=== PATIENT | female | born 1935 | race Caucasian/White ===

== ENCOUNTER → 2019-02-18 08:28 | Outpatient (CLI) | payer MEDICARE, BC, SELFPAY ==
[2019-02-18 11:41] LABS: Glucose 154 mg/dL (80-110)
== END ==
PROVIDERS: Visit Provider Nurse Practitioner
DX: E11.9 Type 2 diabetes mellitus without complications (principal)
CPT/HCPCS: 36415; 82947; 83036

== ENCOUNTER → 2019-05-20 10:51 | Outpatient (CLI) | payer MEDICARE, BC, SELFPAY ==
--- NOTE | 2019-05-20 10:53 | DI.MG.S_ITS ---
BILATERAL DIGITAL SCREENING MAMMOGRAM 3D/2D WITH CAD: 05/20/2019 CLINICAL: Routine screening. Personal history of left breast cancer. Family history of breast cancer. Comparison is made to exams dated: 05/01/2018 mammogram, 02/13/2017 mammogram, and 01/01/2016 mammogram - [facility]. The tissue of both breasts is heterogeneously dense. This may lower the sensitivity of mammography. Current study was also evaluated with a Computer Aided Detection (CAD) system. There are benign vascular calcifications in both breasts. No significant masses, calcifications, or other findings are seen in either breast. There has been no significant interval change. IMPRESSION: There is no mammographic evidence of malignancy. A 1 year screening mammogram is recommended. This exam was interpreted at Station ID: [id number]. NOTE: For mammograms, a report in lay terms will be sent to the patient. Approximately 15% of breast malignancies will not be visualized mammographically. In the management of a palpable breast mass, a negative mammogram must not discourage biopsy of a clinically suspicious lesion. Electronically Signed By: Harinder sylvester/malcolm:05/20/2019 12:17:26 copy to: WILLI[facility] NESBITT letter sent: Normal Exam ACR BI-RADS Category 2: Benign Finding(s) 3342F
== END ==
PROVIDERS: PCP Nurse Practitioner; Referring Provider Internal Medicine Hematology & Oncology; Visit Provider Internal Medicine Hematology & Oncology
DX: Z12.31 Encounter for screening mammogram for malignant neoplasm of breast (principal); Z85.3 Personal history of malignant neoplasm of breast; Z80.3 Family history of malignant neoplasm of breast
CPT/HCPCS: 77063; 77067

== ENCOUNTER → 2019-08-27 10:05 | Outpatient (CLI) | payer MEDICARE, BC, SELFPAY ==
[2019-08-27 11:04] LABS: Hemoglobin A1C% w Est Avg Glu 8.3 % (4.0-6.0)
[2019-08-27 11:10] LABS: Alanine Aminotransferase 15 IU/L (<35); Albumin 3.8 g/dL (3.5-5.0); Albumin Globulin Ratio 1.2 (1.0-2.8); Alkaline Phosphatase 100 U/L (38-126); Aspartate Aminotransferase 33 IU/L (14-36); BUN Creatinine Ratio 15.5 (6-22); Bilirubin Total 0.6 mg/dL (0.2-1.3); Blood Urea Nitrogen 11 mg/dL (7-17); Calcium 9.4 mg/dL (8.4-10.2); Carbon Dioxide 31 mmol/L (22-32); Chloride 101 mmol/L (98-107); Cholesterol 97 mg/dL (140-199); Estimated Glomerular Filt Rate > 60.0 mL/min (>60); Globulin 3.2 g/dL (1.7-4.1); Glucose 165 mg/dL (80-110); HDL Cholesterol 44 mg/dL (40-60); HEMOLYSIS < 15 (0-50); LDL Cholesterol Calculated 40 mg/dL (<100); Sodium 139 mmol/L (137-145); Triglycerides 65 mg/dL (35-150)
[2019-08-27 13:54] LABS: Thyroid Stimulating Hormone 0.63 uIU/mL (0.47-4.68)
== END ==
PROVIDERS: PCP Nurse Practitioner; Referring Provider Nurse Practitioner; Visit Provider Nurse Practitioner
DX: E03.9 Hypothyroidism, unspecified (principal); E11.65 Type 2 diabetes mellitus with hyperglycemia; E78.5 Hyperlipidemia, unspecified; I48.11 Longstanding persistent atrial fibrillation; Z79.899 Other long term (current) drug therapy
CPT/HCPCS: 36415; 80053; 80061; 83036; 84443

== ENCOUNTER → 2019-12-25 08:01 | Outpatient (CLI) | payer MEDICARE, BC, SELFPAY ==
[2019-12-25 08:31] LABS: Add Manual Diff / Slide Review NO; Basophils Absolute Auto 0 /uL (0-100); Basophils Percent Auto 0.6 % (0-2); Eosinophils Absolute Auto 300 /uL (0-450); Eosinophils Percent Auto 3.9 % (2-4); Hematocrit 37.5 % (36-46); Hemoglobin 11.8 g/dL (12.0-16.0); Lymphocytes Absolute Auto 2400 /uL (1100-4500); Lymphocytes Percent Auto 34.6 % (25-40); Mean Corpuscular HGB Conc 31.5 % (30-36); Mean Corpuscular Hemoglobin 23.2 PG (26-34); Mean Corpuscular Volume 73.9 fL (80-100); Monocytes Absolute Auto 800 /uL (0-900); Neutrophils Absolute Auto 3400 /uL (1500-7000); Neutrophils Percent Auto 48.9 % (50-75); Platelet Count 194 X10^3/uL (150-400); Red Blood Cell Count 5.07 X10^6/uL (4.0-5.2); Red Cell Distribution Width 17.7 % (11.6-14.8)
[2019-12-25 08:41] LABS: Alanine Aminotransferase 19 IU/L (<35); Albumin 3.7 g/dL (3.5-5.0); Albumin Globulin Ratio 1.2 (1.0-2.8); Alkaline Phosphatase 100 U/L (38-126); Aspartate Aminotransferase 33 IU/L (14-36); BUN Creatinine Ratio 13.2 (6-22); Bilirubin Total 0.5 mg/dL (0.2-1.3); Blood Urea Nitrogen 10 mg/dL (7-17); Carbon Dioxide 34 mmol/L (22-32); Chloride 101 mmol/L (98-107); Estimated Glomerular Filt Rate > 60.0 mL/min (>60); Globulin 3.1 g/dL (1.7-4.1); Glucose 139 mg/dL (80-110); HEMOLYSIS < 15 (0-50); Potassium 3.4 mmol/L (3.4-5.1); Sodium 138 mmol/L (137-145); Total Protein 6.8 g/dL (6.3-8.2)
[2019-12-25 08:42] LABS: Hemoglobin A1C% w Est Avg Glu 8.3 % (4.0-6.0)
[2019-12-25 09:49] LABS: Thyroid Stimulating Hormone 1.94 uIU/mL (0.47-4.68)
[2019-12-25 09:59] LABS: Alanine Aminotransferase 18 IU/L (<35); Albumin 3.5 g/dL (3.5-5.0); Albumin Globulin Ratio 1.2 (1.0-2.8); Alkaline Phosphatase 100 U/L (38-126); Aspartate Aminotransferase 37 IU/L (14-36); BUN Creatinine Ratio 13.9 (6-22); Bilirubin Total 0.5 mg/dL (0.2-1.3); Blood Urea Nitrogen 10 mg/dL (7-17); Calcium 9.1 mg/dL (8.4-10.2); Carbon Dioxide 33 mmol/L (22-32); Chloride 101 mmol/L (98-107); Estimated Glomerular Filt Rate > 60.0 mL/min (>60); Globulin 2.9 g/dL (1.7-4.1); Glucose 137 mg/dL (80-110); HEMOLYSIS < 15 (0-50); Potassium 3.5 mmol/L (3.4-5.1); Sodium 138 mmol/L (137-145); Total Protein 6.4 g/dL (6.3-8.2)
== END ==
PROVIDERS: Internal Medicine Hematology & Oncology; PCP Nurse Practitioner; Referring Provider Nurse Practitioner; Visit Provider Nurse Practitioner
DX: C50.912 Malignant neoplasm of unspecified site of left female breast (principal); E03.9 Hypothyroidism, unspecified; E11.65 Type 2 diabetes mellitus with hyperglycemia; E78.5 Hyperlipidemia, unspecified; I48.11 Longstanding persistent atrial fibrillation; Z79.899 Other long term (current) drug therapy
CPT/HCPCS: 36415; 80053; 83036; 84443; 85025

== ENCOUNTER → 2019-12-30 11:56 | Outpatient (CLI) | payer MEDICARE, BC, SELFPAY ==
--- NOTE | 2019-12-30 11:59 | DI.CT.S_ITS ---
PROCEDURE: CT CHEST WO CON INDICATIONS: cough, breast cancer TECHNIQUE: Noncontrast 5 mm thick sections acquired from the pulmonary apices to the posterior costophrenic angles. 1 mm lung window, 5 mm thick coronal and sagittal and 7 mm axial MIP reformats were then acquired. For radiation dose reduction, the following was used: automated exposure control, adjustment of mA and/or kV according to patient size. COMPARISON: None. FINDINGS: Image quality: Excellent. Lungs and pleura: No acute air space opacities. There is mild subpleural septal thickening. No pleural effusions or pneumothorax. A 4 mm calcified granuloma is seen in the left lower lobe. Central and peripheral airways are patent and normal in caliber. Mediastinum: Heart size is normal. No pericardial effusion. Severe coronary artery atherosclerosis. No mediastinal adenopathy by size criteria. Thoracic aorta and central pulmonary arteries are normal in size. Esophagus is normal in caliber. No hiatal hernia. Bones and chest wall: No suspicious bony lesions. No vertebral body compression fractures. No axillary or supraclavicular adenopathy by size criteria. Thyroid gland is normal. Abdomen: Liver is partially visualized. The intrahepatic portal vein vein is prominent measuring 1.5 cm in diameter with hypodense halo. IMPRESSION: 1. No suspicious lung nodules to suggest pulmonary metastasis. 2. Mild subpleural septal thickening. 3. A calcified granuloma in the left lower lobe. 4. Liver is partially visualized. The intrahepatic portal vein vein is prominent measuring 1.5 cm in diameter with hypodense halo. Cannot rule out portal vein thrombosis. Recommend abdominal CT with contrast or Doppler ultrasound of the liver for further evaluation. Dictated by: Pema Chavez M.D. on 12/30/2019 at 13:00 Approved by: Pema Chavez M.D. on 12/30/2019 at 18:23
== END ==
PROVIDERS: PCP Nurse Practitioner; Referring Provider Nurse Practitioner; Visit Provider Internal Medicine Hematology & Oncology
DX: C50.912 Malignant neoplasm of unspecified site of left female breast (principal); R05 Cough
CPT/HCPCS: 71250

== ENCOUNTER → 2020-01-29 07:37 | Outpatient (CLI) | payer MEDICARE, BC, SELFPAY ==
--- NOTE | 2020-01-29 07:39 | DI.US.S_ITS ---
PROCEDURE: US ABDOMEN COMPLETE INDICATIONS: HEPATOMEGALY; POSSIBLE PORTAL VEIN THROMBOSIS TECHNIQUE: Real-time scanning was performed of the abdominal and retroperitoneal organs, with image documentation. COMPARISON: [facility], CT, CT CHEST WO CON, 12/30/2019, 12:20. FINDINGS: Liver: Liver is normal in size and homogeneous in echotexture. Gallbladder: Surgically absent Biliary ducts: Intrahepatic bile ducts are non-dilated. Extrahepatic bile duct caliber measures 11.1 mm. Normal is 6-7 mm or less in diameter, or 10 mm or less post-cholecystectomy. Pancreas: Visualized portions of the pancreas are sonographically normal. Spleen: Spleen is normal in size and homogeneous in echotexture. Kidneys: Kidneys are normal in size and echotexture. Right kidney measures 10.0 cm long; left kidney measures 10.0 cm long. No hydronephrosis or nephrolithiasis. No solid masses. Aorta: Visualized aorta is normal in caliber at less than 3 cm. Iliacs: Proximal common iliac arteries are normal in caliber at less than 2.5 cm. IVC: Intrahepatic inferior vena cava is patent. Miscellaneous: No free abdominal fluid. IMPRESSION: The common bile duct caliber is just above the upper limits of normal at 11 mm in a patient with prior cholecystectomy. The main portal vein measures 9 mm and is patent with appropriate direction of flow. The prior chest CT scan 12/30/19 was performed without contrast and the current ultrasound documents no evidence of portal vein thrombosis. Dictated by: Young Silveira M.D. on 01/29/2020 at 11:48 Approved by: Young Silveira M.D. on 01/29/2020 at 11:51
== END ==
PROVIDERS: PCP Nurse Practitioner; Referring Provider Internal Medicine Hematology & Oncology; Visit Provider Internal Medicine Hematology & Oncology
DX: C50.912 Malignant neoplasm of unspecified site of left female breast (principal); I81 Portal vein thrombosis; R16.0 Hepatomegaly, not elsewhere classified; Z90.49 Acquired absence of other specified parts of digestive tract
CPT/HCPCS: 76700

== ENCOUNTER → 2020-02-17 09:12 | Outpatient (CLI) | payer MEDICARE, BC, SELFPAY | PROVIDERS: PCP Nurse Practitioner; Visit Provider Physician Assistant | DX: R30.0 Dysuria (principal) | CPT/HCPCS: 87077; 87086; 87147 ==

== ENCOUNTER → 2020-04-27 07:45 | Outpatient (CLI) | payer MEDICARE, BC, SELFPAY ==
[2020-04-27 08:34] LABS: Add Manual Diff / Slide Review NO; Basophils Absolute Auto 0 /uL (0-100); Basophils Percent Auto 0.5 % (0-2); Eosinophils Absolute Auto 300 /uL (0-450); Eosinophils Percent Auto 4.1 % (2-4); Hematocrit 42.6 % (36-46); Hemoglobin 13.2 g/dL (12.0-16.0); Lymphocytes Absolute Auto 2300 /uL (1100-4500); Lymphocytes Percent Auto 29.6 % (25-40); Mean Corpuscular HGB Conc 31.1 % (30-36); Mean Corpuscular Volume 77.2 fL (80-100); Monocytes Absolute Auto 800 /uL (0-900); Monocytes Percent Auto 10.8 % (3-14); Neutrophils Absolute Auto 4200 /uL (1500-7000); Platelet Count 154 X10^3/uL (150-400); Red Blood Cell Count 5.52 X10^6/uL (4.0-5.2); White Blood Cell Count 7.7 X10^3/uL (4.5-11.0)
[2020-04-27 08:45] LABS: Cholesterol 107 mg/dL (140-199); HDL Cholesterol 54 mg/dL (40-60); LDL Cholesterol Calculated 37 mg/dL (<100); Triglycerides 81 mg/dL (35-150)
[2020-04-27 09:44] LABS: Thyroid Stimulating Hormone 0.612 uIU/mL (0.47-4.68)
[2020-04-27 15:30] LABS: Anisocytosis 2+; Hypochromasia 2+; Microcytosis 2+; Platelet Estimate Decreased on smear; Poikilocytosis 1+
== END ==
PROVIDERS: PCP Nurse Practitioner; Referring Provider Nurse Practitioner; Visit Provider Nurse Practitioner
DX: E11.65 Type 2 diabetes mellitus with hyperglycemia (principal); E03.9 Hypothyroidism, unspecified; E78.5 Hyperlipidemia, unspecified; D64.9 Anemia, unspecified
CPT/HCPCS: 36415; 80061; 83036; 84443; 85025

== ENCOUNTER 2023-03-18 07:58 | Emergency (ER) | payer MEDICARE, BC, SELFPAY ==
[2023-02-07 22:28] VITALS: BMI 17.2
[2023-03-18] VITALS (13 sets, daily range): BP systolic 136–194; BP diastolic 76–110; PULSE 80–98; RESP 16–98; TEMP 37.3; O2SAT 92–98; BMI 18.6
--- NOTE | 2023-03-18 08:28 | ED.ABDPAIN ---
HPI - Abdominal Pain General Chief Complaint: Neuro Symptoms/Deficit Stated Complaint: confusion, shaky, fever, abd pain Time Seen by Provider: 03/18/23 08:21 Source: patient and family Mode of arrival: Family Vehicle History of Present Illness HPI narrative: 88-year-old female history of CVA hypertension diabetes hyperlipidemia presented to the emergency room with my worsening confusion, fever last night, decreased appetite over the last couple of days, patient is accompanied by her daughter at bedside, daughter provided most of the history. Daughter describes that patient usually gets sick and sicker when there is some hint [place] such as mild confusion. Last time with same symptoms patient was discovered to have pneumonia and was admitted to the hospital, patient in the emergency room saturation is approximately 96% and breathing at ease, no complaint of fever at the moment, however last night was 101. There is occasional cough and requirement to clear some phlegm. No sore throat. No abdominal pain, no hematuria no dysuria. Currently not in distress, GCS 15 alert oriented x3, Related Data Home Medications Medication Instructions Recorded Confirmed calcium 500 mg tablet 500 mg DAILY 08/12/21 02/15/23 Previous Rx's Medication Instructions Recorded cholecalciferol (vitamin D3) 25 2,000 unit PO DAILY #180 caps 10/27/20 mcg (1,000 unit) capsule blood-glucose meter #1 ea 03/17/22 levothyroxine 88 mcg tablet See Rx Instructions .Route 03/17/22 .COMPLEX #90 tabs atorvastatin 10 mg tablet See Rx Instructions .Route 05/05/22 .COMPLEX #45 tabs blood sugar diagnostic (Blood #100 ea 06/28/22 Glucose Test strips) lancets #100 ea 06/28/22 sitagliptin phosphate 100 mg See Rx Instructions .Route 07/04/22 tablet (Januvia) .COMPLEX #90 tabs apixaban 2.5 mg tablet (Eliquis) 2.5 mg PO BID #180 tabs 08/24/22 metoprolol succinate 50 mg 50 mg PO BID #180 tabs 08/24/22 tablet,extended release 24 hr potassium chloride 10 mEq oral 20 meq PO DAILY #60 ea 02/01/23 packet telmisartan 20 mg tablet 40 mg (2 x 20 mg) PO DAILY #180 02/01/23 tabs amoxicillin 875 mg-potassium 1 tab PO Q12H #8 tabs 02/14/23 clavulanate 125 mg tablet Allergies Allergy/AdvReac Type Severity Reaction Status Date / Time moxifloxacin [From Avelox] Allergy Mild heart Verified 02/15/23 11:19 racing Review of Systems Review of Systems Narrative: All systems negative except what is dictated in HPI Patient History Medical History (Updated 03/18/23 @ 13:23 by Alli Huerta MD) CAD (coronary artery disease) Frailty syndrome in geriatric patient Hypertension Malignant neoplasm of overlapping sites of left breast Sarcopenia Recurrent UTI Cerumen impaction UTI (urinary tract infection) Weight loss observed on examination Other assisted (current) drug therapy Hyperlipidemia [place]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 Asthma Stroke (~2016) Headache Chicken pox (~194) Anemia Hypothyroidism Diabetes mellitus Atrial fibrillation (~1997) Surgical History Anesthesia History of colonoscopy History of cholecystectomy Family History Father Cancer Social History household members: children Smoking Status: Never smoker alcohol intake: never substance use type: does not use Smoking Status: Never smoker Substance Use Type: does not use Exam Initial Vital Signs Initial Vital Signs: Vital Signs Pulse Rate 91 H 03/18/23 08:09 Pulse Oximetry 94 03/18/23 08:09 Const General: cooperative, healthy appearing, comfortable, well developed and well groomed [facility] Head: normal to inspection, normocephalic and atraumatic Eyes General: Yes appearance normal, both eyes and all related structures Neck Neck: normal visual inspection, full ROM and no meningeal signs Chest Chest: normal inspection of the chest and normal palpation of entire chest wall Resp Effort & Inspection: normal respiratory effort and able to speak in complete sentences Cardio Palpation: normal PMI and abnormal PMI Rate: regular rate Rhythm: regular rhythm Heart Sounds: S1 normal and S2 normal GI Inspection: normal to inspection and abdominal wall ecchymosis Palpation: no hepatosplenomegaly Percussion: normal to percussion and dullness to percussion General: bimanual renal exam normal bilaterally and bladder normal to inspection Back/Spine/Pelvis Back: normal to inspection Skin General: no rashes or lesions noted, elasticity normal and dry skin Neuro General: patient alert, patient oriented x3, oriented, gait normal, moves all extremities, normal light touch, pain and propioception, no meningeal signs, no focal motor deficits, CN's II-XI intact bilaterally and normal sensation to monofilament Extrem General: normal to inspection and full ROM Psych Appearance: grossly normal and well kempt Mental Status: mental status grossly normal Speech and Movement: speech and movement normal Mood: congruent mood Affect: normal affect Attitude: cooperative Thought Process: normal Thought Content: normal Judgment: judgment good Course Orders Ordered: ED Orders 03/18/23 08:28 EKG-12 Lead Stat 03/18/23 08:31 Chest [XR chest 2V] Stat 03/18/23 09:20 Complete Blood Count AUTO DIFF Stat Comprehensive Metabolic Panel Stat Covid-19 + FLU A/B + RSV - PCR Stat Lactate (Lactic Acid) Stat Procalcitonin Stat Prothrombin Time INR Stat Troponin I Stat 03/18/23 09:30 Blood Culture Stat 03/18/23 12:50 Urine Culture Stat Urine Microscopic Stat Sodium Chloride (Normal Saline 0.9%) 1,000 mls @ 150 mls/hr IV CONT HERMINIA Last Admin: 03/18/23 09:56 Dose: 150 mls/hr Documented By: KEHINDE Vital Signs Vital signs: Vital Signs - 8 hr 03/18/23 08:09 03/18/23 08:10 03/18/23 08:10 Temperature Pulse Rate 91 H 88 Respiratory Rate Blood Pressure 189/105 H Pulse Oximetry 94 95 Oxygen Delivery Method 03/18/23 08:11 03/18/23 08:11 03/18/23 08:17 Temperature 99.1 F Pulse Rate 98 H 89 Respiratory Rate 23 16 Blood Pressure 191/106 H 191/106 H Pulse Oximetry 95 97 Oxygen Delivery Method Room Air 03/18/23 08:30 03/18/23 08:30 03/18/23 09:00 Temperature Pulse Rate 93 H Respiratory Rate 24 Blood Pressure 165/110 H 170/84 H Pulse Oximetry 92 Oxygen Delivery Method 03/18/23 09:00 03/18/23 09:30 03/18/23 09:30 Temperature Pulse Rate 88 89 Respiratory Rate 23 23 Blood Pressure 159/80 H Pulse Oximetry 95 95 Oxygen Delivery Method Room Air 03/18/23 10:00 03/18/23 10:00 03/18/23 10:30 Temperature Pulse Rate 90 86 Respiratory Rate 23 23 Blood Pressure 143/76 H Pulse Oximetry 95 94 Oxygen Delivery Method 03/18/23 10:30 03/18/23 11:00 03/18/23 11:00 Temperature Pulse Rate 86 Respiratory Rate 19 Blood Pressure 150/78 H 149/91 H Pulse Oximetry 95 Oxygen Delivery Method 03/18/23 11:30 03/18/23 11:30 03/18/23 12:06 Temperature Pulse Rate 80 90 Respiratory Rate 21 27 H Blood Pressure 136/80 Pulse Oximetry 95 92 Oxygen Delivery Method MDM - Abdominal Pain Differential Diagnosis Differential diagnosis: Likely abdominal pain, acute appendicitis, calculus of kidney, constipation and diverticulitis Medical Records Medical records narrative: 88-year-old with history of CVA hypertension hyperlipidemia diabetes he would complain of mild confusion. There was also mild fever at home of 101 yesterday. There is diminished appetite, Per daughter this may be a hint of UTI or pneumonia in the past. Based on my H&P differential diagnosis include UTI, mild confusion could be related to early dementia, at this time patient does not have any respiratory distress, saturations 96% on room air, unlikely to be pneumonia, however since there is fever, we will proceed with viral swab in addition to IV insertion blood work EKG chest x-ray One hundred fifteen, patient is reassessed, daughter is at bedside, I have disclosed to both of them lab results which shows normal potassium, normal x-ray of the chest except mild edema, normal urinalysis without evidence of urinary tract infection, they were pleased with the result, according to the daughter, patient has had occasional memory issue, he recommended to her to make appointment with her primary care doctor for referral to Neurology for evaluation of dementia maybe there is a need for medication. She understood. At the time of discharge, patient is stable. All questions addressed. Lab Data 03/18/23 09:20 03/18/23 09:20 Labs: Lab Results 03/18/23 03/18/23 Range/Units 09:20 12:50 WBC 10.9 (4.5-11.0) X10^3/uL RBC 4.38 (4.0-5.2) X10^6/uL Hgb 13.8 (12.0-16.0) g/dL Hct 40.8 (36-46) % MCV 93.2 (80-100) fL MCH 31.6 (26-34) PG MCHC 33.9 (30-36) % RDW 14.2 (11.6-14.8) % Plt Count 127 L (150-400) X10^3/uL Neut % (Auto) 73.3 (50-75) % Lymph % (Auto) 13.2 L (25-40) % [place] % (Auto) 11.4 (3-14) % Eos % (Auto) 1.8 L (2-4) % Baso % (Auto) 0.3 (0-2) % Neut # (Auto) 8000 H (2798-5276) /uL Lymph # (Auto) 1400 (5332-6298) /uL [place] # (Auto) 1200 H (0-900) /uL Eos # (Auto) 200 (0-450) /uL Baso # (Auto) 0 (0-100) /uL PT 19.1 H (9.4-12.5) SECONDS INR 1.7 H (0.9-1.3) Sodium 135 L (137-145) mmol/L Potassium 3.6 (3.4-5.1) mmol/L Chloride 98 (98-107) mmol/L Carbon Dioxide 34 H (22-32) mmol/L BUN 9 (7-17) mg/dL Creatinine 0.51 L (0.52-1.04) mg/dL Estimated GFR > 60 (>60) mL/min BUN/Creatinine Ratio 17.6 (6-22) Glucose 162 H (80-110) mg/dL Lactate 1.7 (0.7-2.1) mmol/L Calcium 9.1 (8.4-10.2) mg/dL Total Bilirubin 1.3 (0.2-1.3) mg/dL AST 40 H (14-36) IU/L ALT 24 (<35) IU/L Alkaline Phosphatase 109 (38-126) U/L Troponin I < 0.012 (0.01-0.034) ng/mL Total Protein 6.4 (6.3-8.2) g/dL Albumin 3.3 L (3.5-5.0) g/dL Globulin 3.1 (1.7-4.1) g/dL Albumin/Globulin Ratio 1.1 (1.0-2.8) Procalcitonin 0.05 (<0.5) ng/mL Urine RBC 0-1/hpf (0-5/HPF) Urine WBC 1-5/hpf (0-5/HPF) Ur Squamous Epith Cells 0-1 /hpf (0-5/HPF) Urine Bacteria None seen (None) Urine Mucus 1+ H (Negative) SARS-CoV-2 (PCR) Negative (Negative) Influenza A (RT-PCR) Flu a negative (NEGATIVE) Influenza B (RT-PCR) Flu b negative (NEGATIVE) RSV (PCR) Negative (Negative) Point of care testing: Urine Dip Bedside Urine Glucose Negative Bedside Urine Bilirubin - Negative Bedside Urine Ketone +/- 5 Urine Specific [place] 1.015 Bedside Urine Occult Blood - Negative Bedside Urine pH 6.0 Bedside Urine Protein - Negative Bedside Urine Urobilinogen - Negative Bedside Urine Nitrite - Negative Bedside Urine Leukocytes +/- 15 Esterase ECG Data Interpretation: Atrial fibrillation heart rate of 90, QRS 84, QT 350 QTC 428 Discharge Plan Departure Patient Disposition: Home Clinical Impression: Confusion Dementia Qualifiers: Dementia type: unspecified type Dementia severity: mild Dementia behavioral or psychological symptom: unspecified whether behavioral, psychotic, or mood disturbance or anxiety Qualified Code(s): F03.A0 - Unspecified dementia, mild, without behavioral disturbance, psychotic disturbance, mood disturbance, and anxiety Atrial fibrillation Qualifiers: Atrial fibrillation type: permanent Qualified Code(s): I48.21 - Permanent atrial fibrillation Instructions: Dementia Activity Restrictions/Additional Instructions: Please follow-up with your primary care doctor in the next 5-7 days, may benefit from a referral to Neurology for evaluation and treatment of early dementia Prescriptions: No Action atorvastatin 10 mg tablet See Rx Instructions .ROUTE .COMPLEX Qty: 45 3RF Dose Instruction: TAKE 1/2 TABLET BY MOUTH DAILY EACH EVENING FOR CHOLESTEROL Rx Instructions: TAKE 1/2 TABLET BY MOUTH DAILY EACH EVENING FOR CHOLESTEROL (DME) lancets Misc See Rx Instructions .ROUTE .MEDSUPPLY Qty: 100 3RF Rx Instructions: Use to check blood glucose once daily, BRAND PER INSURANCE (DME) Blood Glucose Test Strip See Rx Instructions .ROUTE .MEDSUPPLY Qty: 100 3RF Rx Instructions: Use to check blood glucose once daily, BRAND PER INSURANCE Januvia 100 mg tablet See Rx Instructions .ROUTE .COMPLEX Qty: 90 3RF Dose Instruction: TAKE 1 TABLET BY MOUTH DAILY Rx Instructions: TAKE 1 TABLET BY MOUTH DAILY amoxicillin-pot clavulanate 875-125 mg tablet 1 tab PO Q12H Qty: 8 0RF cholecalciferol (vitamin D3) 25 mcg (1,000 unit) capsule 2,000 unit PO DAILY Qty: 180 2RF Rx Instructions: Take 2 caps daily for bone health Eliquis 2.5 mg tablet 2.5 mg PO BID Qty: 180 3RF metoprolol succinate 50 mg tablet extended release 24 hr 50 mg PO BID Qty: 180 3RF levothyroxine 88 mcg tablet See Rx Instructions .ROUTE .COMPLEX Qty: 90 3RF Dose Instruction: TAKE 1 TABLET(88 MCG) BY MOUTH DAILY 30 MINUTES BEFORE MEAL ON AN EMPTY STOMACH Rx Instructions: TAKE 1 TABLET(88 MCG) BY MOUTH DAILY 30 MINUTES BEFORE MEAL ON AN EMPTY STOMACH (DME) blood-glucose meter Mis See Rx Instructions .ROUTE .MEDSUPPLY Qty: 1 0RF Rx Instructions: Use to check blood glucose once daily, BRAND PER INSURANCE potassium chloride 10 mEq packet 20 meq PO DAILY Qty: 60 3RF Patient Comments: hasn't started yet Rx Instructions: Take 2 packets mixed with pudding or apple sauce daily telmisartan 20 mg tablet 40 mg PO DAILY Qty: 180 3RF Patient Comments: hasn't started yet Rx Instructions: ok to crush calcium 500 mg Tablet 500 mg DAILY Referrals: Hannah Becerra ARNP [Primary Care Provider] - Stand Alone Forms: Patient Portal/API
--- NOTE | 2023-03-18 08:31 | DI.RAD.S_ITS ---
PROCEDURE: XR CHEST 2V INDICATIONS: shortness of breath TECHNIQUE: 2 views of the chest were acquired. COMPARISON: [facility], CR, XR CHEST 1V, 02/07/2023, 17:50. [facility], CR, XR CHEST 1V, 12/15/2022, 0:47. FINDINGS: Surgical changes and devices: None. Lungs and pleura: Minimal prominence of the interstitium. No dense consolidation. There are trace effusions. Mediastinum: Cardiomegaly Bones and chest wall: Degenerative changes. IMPRESSION: Cardiomegaly. Mildly prominent interstitium and trace effusions, possibly early edema. Consider future imaging surveillance to assess for resolution. Dictated by: Ayaan Russ M.D. on 03/18/2023 at 10:09 Approved by: Ayaan Russ M.D. on 03/18/2023 at 10:10
[2023-03-18 09:50] LABS: HEMOLYSIS 24 (0-50)
[2023-03-18 09:51] LABS: Add Manual Diff / Slide Review NO; Basophils Absolute Auto 0 /uL (0-100); Basophils Percent Auto 0.3 % (0-2); Eosinophils Absolute Auto 200 /uL (0-450); Eosinophils Percent Auto 1.8 % (2-4); Hematocrit 40.8 % (36-46); Hemoglobin 13.8 g/dL (12.0-16.0); INR 1.7 (0.9-1.3); Lymphocytes Absolute Auto 1400 /uL (1100-4500); Lymphocytes Percent Auto 13.2 % (25-40); Mean Corpuscular HGB Conc 33.9 % (30-36); Mean Corpuscular Hemoglobin 31.6 PG (26-34); Mean Corpuscular Volume 93.2 fL (80-100); Monocytes Absolute Auto 1200 /uL (0-900); Monocytes Percent Auto 11.4 % (3-14); Neutrophils Absolute Auto 8000 /uL (1500-7000); Neutrophils Percent Auto 73.3 % (50-75); Platelet Count 127 X10^3/uL (150-400); Prothrombin Time 19.1 SECONDS (9.4-12.5); Red Blood Cell Count 4.38 X10^6/uL (4.0-5.2); Red Cell Distribution Width 14.2 % (11.6-14.8); White Blood Cell Count 10.9 X10^3/uL (4.5-11.0)
[2023-03-18 09:56] LABS: Alanine Aminotransferase 24 IU/L (<35); Albumin 3.3 g/dL (3.5-5.0); Albumin Globulin Ratio 1.1 (1.0-2.8); Alkaline Phosphatase 109 U/L (38-126); Aspartate Aminotransferase 40 IU/L (14-36); BUN Creatinine Ratio 17.6 (6-22); Bilirubin Total 1.3 mg/dL (0.2-1.3); Blood Urea Nitrogen 9 mg/dL (7-17); Calcium 9.1 mg/dL (8.4-10.2); Carbon Dioxide 34 mmol/L (22-32); Chloride 98 mmol/L (98-107); Estimated Glomerular Filt Rate > 60 mL/min (>60); Globulin 3.1 g/dL (1.7-4.1); Glucose 162 mg/dL (80-110); Potassium 3.6 mmol/L (3.4-5.1); Sodium 135 mmol/L (137-145); Total Protein 6.4 g/dL (6.3-8.2)
[2023-03-18] MEDS: SODIUM CHLORIDE 0.9% 1,000 ML 150 ML IV (09:56)
[2023-03-18 09:57] LABS: Lactate (Lactic Acid) 1.7 mmol/L (0.7-2.1)
[2023-03-18 10:07] LABS: Troponin I < 0.012 ng/mL (0.01-0.034)
[2023-03-18 10:17] LABS: Procalcitonin 0.05 ng/mL (<0.5)
[2023-03-18 10:22] LABS: Influenza A - CEPHEID Flu A NEGATIVE (NEGATIVE); Influenza B - CEPHEID Flu B NEGATIVE (NEGATIVE); Respiratory Syncytial Virus Negative (Negative)
[2023-03-18 10:23] LABS: COVID-19 CEPHEID 4-PLEX PCR Negative (Negative)
[2023-03-18 13:13] LABS: Bacteria Urine None Seen; Mucus Urine 1+ (Negative); RBC Urine 0-1/HPF (0-5/HPF); Squamous Epithelial Cell Urine 0-1 /HPF (0-5/HPF); WBC Urine 1-5/HPF (0-5/HPF)
== END 2023-03-18 13:38 | disposition home or self-care (01) ==
PROVIDERS: Emergency Provider Emergency Medicine Emergency Medical Services; Family Provider Nurse Practitioner; PCP Nurse Practitioner
DX: F03.A0 Unspecified dementia, mild, without behavioral disturbance, psychotic disturbance, mood disturbance, and anxiety (principal); I48.21 Permanent atrial fibrillation; R41.0 Disorientation, unspecified; Z79.01 Long term (current) use of anticoagulants; Z79.899 Other long term (current) drug therapy; Z20.822 Contact with and (suspected) exposure to COVID-19
CPT/HCPCS: 0241U; 36415; 51798; 71046; 80053; 81003; 81015; 83605; 84145; 84484; 85025; 85610; 87040; 87086; 93005; 96360; 96361; 99284